=== PATIENT | female | born 1935 | race Caucasian/White ===

== ENCOUNTER 2018-03-06 14:56 | Inpatient (IN) | payer MEDICARE, OTHER ==
[~2018-03-06] VITALS: Ht 167.6 cm; Wt 81.5 kg
--- NOTE | ~2018-03-06 | HP ---
PATIENT: FOSTER NEWTON MEDICAL RECORD: [id number] ACCOUNT: [id number] LOCATION:[address] : 39 ADMISSION DATE: 03/06/18 HISTORY AND PHYSICAL EXAMINATION CHIEF COMPLAINT: One episode of difficulty speaking. The patient states that approximately 1:00 today she was talking to her friend and had difficulty expressing her speech. This lasted she states 10-15 minutes. The patient presented to the Emergency Room for evaluation. PAST MEDICAL HISTORY: Significant that she has had hypertension, hyperlipidemia, gastroesophageal reflux, history of diverticulitis, chronic low back pain. She is a . FAMILY HISTORY: Brother has hypertension. Also, mother had heart disease. Father also had heart disease, of pneumonia. Brother had myocardial infarction. MEDICATIONS: Include Prevacid 30 mg p.o. every day, vitamin D3 2000 international units once a day, meloxicam 7.5 p.o. day, losartan 100/12.5 hydrochlorothiazide 1 p.o. every day, Lasix 40 mg p.o. q.a.m. p.r.n. edema, diclofenac 75 mg 1 p.o. q.12 hours p.r.n. severe pain, amlodipine 5 mg p.o. every day. ALLERGIES: THE PATIENT IS ALLERGIC TO MORPHINE AND MEDROL DOSEPAK. SOCIAL HISTORY: The patient was born and raised in [place]. She is a . She is educated through the 11th grade. She is a mother of 3. PAST SURGICAL HISTORY: She has had a partial thyroidectomy. She has had breast biopsies times 3. HABITS: None. REVIEW OF SYSTEMS: CONSTITUTIONAL: She denies any headaches, seizure, or syncope. She denies change in vision or auditory acuity. PULMONARY: She denies any shortness of breath, cough, congestion, history of TB, asthma, or bronchitis. CARDIOVASCULAR: She has had no chest pain, palpitation. GASTROINTESTINAL: No chronic nausea, vomiting, melena, hematochezia. GENITOURINARY: No frequency or dysuria. PHYSICAL EXAMINATION: VITAL SIGNS: In the Emergency Room, the patient's temperature was 97.8, her pulse 72, respirations 20, blood pressure elevated 180/80. HEENT: Head is normocephalic. No lesions. Ears: TMs clear. Eyes: Pupils equal, round, reactive to light. Her extraocular movements are intact. Nasal cavity, oral cavity, oropharynx clear. NECK: Supple. There is no adenopathy. HEART: Has a regular rate and rhythm without murmurs, gallops, or rubs. LUNGS: Clear. ABDOMEN: Soft, bowel sounds are positive. NEUROLOGIC: The patient has 5/5 hand calibration checker strength bilaterally. She is able to ambulate without any difficulty. She has no problems with tandem gait, hand HISTORY AND PHYSICAL [id number] FOSTER NEWTON calibration checker strength is 5/5. Skaciv-cpiu-rlnjmf is intact. Heel knee castellano is intact. DIAGNOSTIC DATA: The patient had a cranial CT scan without contrast, no acute intracranial abnormalities could be appreciated. She had a chest x-ray. Chest x-ray revealed no evidence of cardiopulmonary disease. She did have previous granulomatous disease, which is stable. LABORATORY DATA: White cell count is 6.1, hemoglobin 14.6, hematocrit 42.2, and her platelets are 141. Sodium 142, potassium 3.7, chloride 106, CO2 is 28, BUN is 10, creatinine of 1.0, glucose of 109. Troponin is negative. BMP is negative. Liver functions normal. ASSESSMENT: Transient ischemic attack with expressive aphasia. PLAN: The patient will be admitted. She will have a cranial MRI as well as echocardiogram to rule out any mural thrombus, also carotid Dopplers, placed on aspirin 325 mg 1 p.o. every day. Continue current medication. TRANSINT:[id number] Voice Confirmation ID: [id number] DOCUMENT ID: [id number] AGATA LACY MD at [id number] CC: [id number] DICTATION DATE: 03/06/181841 MEDICAL HEALTH RESEARCHER: 03/06/18 190 ADM IN [facility] [address] [place] [address]
[~2018-03-06 14:56] MED LIST: MOBIC7.5 MG PO; NORVASC5 MG PO; POTASSIUM CHLOR8 ME1; VITAMIN D2000 UNIT PO
[2018-03-06 16:56] LABS: BASOPHILS 0.5 % (0-2); EOSINOPHILS 3.3 % (0-7); HEMATOCRIT 42.2 % (36.0-48.0); HEMOGLOBIN 14.6 g/dL (12-16); LYMPHOCYTES 32.7 % (15-50); MCH 30.4 pg (26.0-34.0); MCHC 34.6 g/dL (31.0-37.0); MCV 87.9 fL (80.0-100.0); MONOCYTES 7.4 % (2-11); NEUTROPHILS 56.1 % (40-80); PLATELET COUNT 141 10x3/uL (130-400); RDW 13.7 % (11.5-14.5); WBC 6.1 10x3/uL (4.8-10.8)
[2018-03-06 17:11] LABS: ALBUMIN 4.1 g/dL (3.4-5.0); ALKALINE PHOSPHATASE 98 U/L (46-116); ALT (SGPT) 19 U/L (10-68); CALC OSMOLALITY 282 mosm/kg (275-300); CALCIUM 9.3 mg/dL (8.5-10.1); CARBON DIOXIDE 28.1 mmol/L (21.0-32.0); CHLORIDE - SERUM 106 mmol/L (98-107); GLUCOSE 109 mg/dL (74-106); POTASSIUM - SERUM 3.8 mmol/L (3.5-5.1); PROTEIN - SERUM 7.6 g/dL (6.4-8.2); SODIUM 142 mmol/L (136-145); UREA NITROGEN 10 mg/dL (7-18); eGFR NON AFRICAN AMERICAN 56 mL/min (90-120)
[2018-03-06 17:19] LABS: CREATINE KINASE 82 UL (21-215); PRO BNP 70 pg/mL (0-450); TROPONIN-I < 0.017 ng/mL (0.000-0.060)
[2018-03-06] MEDS ORDERED: KLOR-CON 1010 MEQ PO (22:52)
[2018-03-06] MEDS ORDERED: PREVACID30 MG PO (22:52)
[2018-03-06] MEDS ORDERED: LISINOPRIL-HCTZ1 T11 PO (22:52)
[2018-03-07] VITALS: BP 137/76
[2018-03-07 04:29] LABS: BASOPHILS 0.5 % (0-2); EOSINOPHILS 3.4 % (0-7); HEMATOCRIT 38.5 % (36.0-48.0); HEMOGLOBIN 13.1 g/dL (12-16); IMMATURE GRANULOCYTES 0.2 % (0-5); LYMPHOCYTES 34.8 % (15-50); MCV 88.3 fL (80.0-100.0); MEAN PLATELET VOLUME 11.6 fL (7.4-10.4); MONOCYTES 10.3 % (2-11); NEUTROPHILS 50.8 % (40-80); PLATELET COUNT 139 10x3/uL (130-400); RBC 4.36 10x6/uL (4.00-5.40); RDW 13.5 % (11.5-14.5); WBC 6.4 10x3/uL (4.8-10.8)
[2018-03-07 04:45] LABS: CALCIUM 8.5 mg/dL (8.5-10.1); CARBON DIOXIDE 27.7 mmol/L (21.0-32.0); CREATININE - SERUM 1.1 mg/dL (0.6-1.3); POTASSIUM - SERUM 3.7 mmol/L (3.5-5.1)
[2018-03-07 05:12] VITALS: BP 137/76; Ht 167.6 cm; Wt 81.5 kg
[2018-03-07] MEDS ORDERED: ECOTRIN325 MG PO (06:39)
[2018-03-07] MEDS ORDERED: DIOVAN HCT 320/1 TAB PO (06:39)
[2018-03-07 08:39] VITALS: BP 145/67
== END 2018-03-07 09:55 | disposition home or self-care (01) | DRG 69 ==
LOC: D.ER 14:56 → D.EDHOLD 17:26 → D.M2 17:26
PROVIDERS: Family Medicine
DX: G45.9 Transient cerebral ischemic attack, unspecified (principal); R47.01 Aphasia; K57.92 Diverticulitis of intestine, part unspecified, without perforation or abscess without bleeding; I10 Essential (primary) hypertension; E78.5 Hyperlipidemia, unspecified; K21.9 Gastro-esophageal reflux disease without esophagitis; M54.5 Low back pain; G89.29 Other chronic pain; R40.2412 Glasgow coma scale score 13-15, at arrival to emergency department

== ENCOUNTER → 2018-10-16 19:00 | Outpatient (CLI) | payer MEDICARE, OTHER ==
[2018-03-07 05:12] VITALS: BMI 29.0
[~2018-10-16 19:00] MED LIST changes: +DIOVAN HCT 320/1 TAB PO; +ECOTRIN325 MG PO; +KLOR-CON 1010 MEQ PO; +LISINOPRIL-HCTZ1 T11 PO; +PREVACID30 MG PO
== END | disposition home or self-care (01) ==
LOC: D.MAMMO 14:00
DX: Z12.31 Encounter for screening mammogram for malignant neoplasm of breast (principal)

== ENCOUNTER → 2021-02-02 12:23 | Outpatient (CLI) | payer MEDICARE, OTHER ==
[2018-03-07 05:12] VITALS: BMI 29.0
== END | disposition home or self-care (01) ==
LOC: D.MRI 12:23
PROVIDERS: ATTEND Family Medicine
DX: M25.511 Pain in right shoulder (principal)